=== PATIENT | female | born 1965 | race Caucasian/White ===

== ENCOUNTER 2020-09-21 18:38 | Emergency (ER) | payer OTHER ==
[~2020-09-21] VITALS: Ht 160 cm; Wt 86.2 kg
[~2020-09-21 18:38] MED LIST: COZAAR 25 MG TA25 M1 PO; LEVOXYL200 MCG PO; LIDODERM 5%1 PATC1 TRANSDERM; ONDANSETRON HCL4 M2; OSENI 25-15 MG1 EACH PO; PAXIL30 MG PO; PERCOCET 10-321 EACH PO; PHENERGAN 25 MG25 M1 PO; PROTONIX40 M1 PO; VALIUM5 MG PO; VITAMIN B-12500 MCG PO; WELLBUTRIN XL300 MG PO; XANAX 0.5 MG0.5 MG PO; XARELTO20 MG PO; ZOCOR40 MG PO
[2020-09-21 20:28] LABS: ABSOLUTE NEUTROPHILS 6.7 thou/uL (1.4-8.2); BASOPHILS 1.1 % (0.0-2.0); EOSINOPHILS 7.8 % (0.0-3.0); HEMATOCRIT 39.3 % (37.0-47.0); HEMOGLOBIN 13.4 gm/dL (12.0-15.0); LYMPHOCYTES 22.3 % (24.0-44.0); MCH 29.7 pg (26.0-34.0); MCHC 34.2 g/dL (28.0-37.0); MCV 86.9 fL (80.0-100.0); MONOCYTES 4.7 % (1.0-8.0); PLATELET COUNT 250 thou/uL (150-400); POLYS 64.1 % (36.0-66.0); RBC 4.52 mil/uL (4.20-5.00); WBC 10.5 thou/uL (4.0-11.0)
[2020-09-21 20:42] LABS: INR 1.3; PROTIME 13.8 Seconds (9.3-11.4)
[2020-09-21 20:51] LABS: ALBUMIN 3.6 g/dL (3.4-5.0); ANION GAP 13 mmol/L (7-16); BUN 6 mg/dL (7-18); CHLORIDE 102 mmol/L (98-107); CO2 27 mmol/L (21-32); CREATININE 0.9 mg/dL (0.6-1.0); GLUCOSE 125 mg/dL (74-106); SGOT 55 U/L (15-37); SGPT 44 U/L (14-59); SODIUM 142 mmol/L (136-145); TOTAL BILIRUBIN 0.5 mg/dL (0.2-1.0); TOTAL PROTEIN 6.9 g/dL (6.4-8.2); TROPONIN-I <0.06 ng/mL (<0.06)
[2020-09-21 20:54] LABS: POTASSIUM 2.9 mmol/L (3.5-5.1)
[2020-09-21 21:35] LABS: URINE BILIRUBIN NEGATIVE (Negative); URINE BLOOD NEGATIVE (Negative); URINE CLARITY CLEAR; URINE COLOR YELLOW; URINE GLUCOSE-RANDOM* NEGATIVE (Negative); URINE KETONES NEGATIVE (Negative); URINE LEUKOCYTES-REFLEX NEGATIVE (Negative); URINE NITRITE-REFLEX NEGATIVE (Negative); URINE PROTEIN (DIPSTICK) TRACE (Negative); URINE SPECIFIC GRAVITY <= 1.005 (1.005-1.035); URINE UROBILINOGEN 0.2 E.U./dl (0.2-1.0)
[2020-09-21] MEDS ORDERED: POTASSIUM20 PO (22:57)
[2020-09-21 23:15] VITALS: BP 123/69
--- NOTE | 2020-09-22 07:27 | EKG ---
[address] [address] ELECTROCARDIOGRAM REPORT Name: TWILA OLGUIN [id number] Admission: 09/21/20 Attend Phys: Discharge: 09/21/20 Date of : 65 Report #: [id number] [facility] ED Test Date: 2020-09-21 Test Time: 20:20:00 Pat Name: TWILA OLGUIN Department: Room: Gender: F Aged Or Disabled Care Worker: KATTY : 1965 Requested By: Samantha Frias Order Number: [id number] MD: Miko Jeffries Measurements Intervals [place] Rate: 76 P: 12 [place]: 152 QRS: 49 QRSD: 92 T: 18 QT: 394 QTc: 444 Interpretive Statements Sinus rhythm Borderline repolarization abnormality No previous ECG available for comparison Electronically Signed On 09-22-2020 7:26:58 [employer] by Miko Jeffries [email or web address] <ELECTRONICALLY SIGNED> By: Miko Jeffries MD, [facility] 09/22/20 0726 19 19 Miko Jeffries MD, FACC /EPI
== END 2020-09-21 23:15 | disposition home or self-care (01) ==
LOC: ER 18:38
PROVIDERS: Physician Assistant
DX: M54.5 Low back pain (principal); E87.6 Hypokalemia; E83.42 Hypomagnesemia; E78.5 Hyperlipidemia, unspecified; Z79.899 Other long term (current) drug therapy; Z88.8 Allergy status to other drugs, medicaments and biological substances

== ENCOUNTER 2020-09-22 08:35 | Inpatient (IN) | payer OTHER ==
[~2020-09-22] VITALS: Ht 160 cm; Wt 86.2 kg
[~2020-09-22 08:35] MED LIST changes: +POTASSIUM20 PO
[2020-09-22 08:36] VITALS: BP 146/69
[2020-09-22 11:25] VITALS: BP 120/62
[2020-09-22 12:15] VITALS: BP 122/82
--- NOTE | 2020-09-22 18:19 | NUR ---
Pt arrived to floor from emergency room at 1315 in stable condition. Admission hx,assessment and care plan completed.vss.Pt c/o back pain rated 10/10.Dilaudid po given but pt insisted on getting iv pain shot.Dr Lerner notified but refused to order pain shot,he said pt has inserted pain pump that constantly delivering med.Pt refused equipment monitor phototypesetting and yellow socks and wrist band.Pt dtr here to visit,updates given.After dinner,pt called her spouse for ride and stated that she wanted to go home AMA.Dr Lerner notified. Will continue to monitor.
== END 2020-09-22 19:09 | disposition left against medical advice (07) | DRG 552 ==
LOC: ER 08:35 → EROBS 12:04 → 4W 12:06
PROVIDERS: ADMIT Hospitalist; ATTEND Hospitalist
DX: M54.5 Low back pain (principal); Q60.0 Renal agenesis, unilateral; E78.00 Pure hypercholesterolemia, unspecified; F41.9 Anxiety disorder, unspecified; F32.9 Major depressive disorder, single episode, unspecified; Z96.651 Presence of right artificial knee joint; Z53.21 Procedure and treatment not carried out due to patient leaving prior to being seen by health care provider; Z98.1 Arthrodesis status; Z90.49 Acquired absence of other specified parts of digestive tract; Z79.899 Other long term (current) drug therapy; Z88.8 Allergy status to other drugs, medicaments and biological substances; Z86.711 Personal history of pulmonary embolism
CPT/HCPCS: 10045

== ENCOUNTER 2020-09-30 10:02 | Emergency (ER) | payer OTHER ==
[~2020-09-30] VITALS: Ht 160 cm; Wt 86.2 kg
[2020-09-30 11:26] VITALS: BP 146/71
== END 2020-09-30 11:26 | disposition home or self-care (01) ==
LOC: ER 10:02
DX: G89.29 Other chronic pain (principal); M54.5 Low back pain; F11.20 Opioid dependence, uncomplicated; E11.9 Type 2 diabetes mellitus without complications; Z88.8 Allergy status to other drugs, medicaments and biological substances; Z88.5 Allergy status to narcotic agent; Z88.6 Allergy status to analgesic agent; Z79.899 Other long term (current) drug therapy; Z90.49 Acquired absence of other specified parts of digestive tract; Z98.51 Tubal ligation status

== ENCOUNTER → 2020-09-30 | Outpatient (CLI) | payer OTHER ==
[~2020-09-30] MED LIST changes: +ALPRAZOLAM ER1 MG PO; +FENTANYL IMPLANT; +LOVENOX80 MG/0.8 SUBQ; -ONDANSETRON HCL4 M2; +ONDANSETRON HCL4 M2 PO; +OZEMPIC0.25 MG/0. SUBQ; +PROAIR HFA8.5 GM INH
== END ==
LOC: LAB 08:26
PROVIDERS: ATTEND Specialist
DX: Z01.812 Encounter for preprocedural laboratory examination (principal); Z20.822 Contact with and (suspected) exposure to COVID-19

== ENCOUNTER → 2020-09-30 | Outpatient (CLI) | payer OTHER | LOC: CAT 09:34 | PROVIDERS: ATTEND Specialist | DX: M51.26 Other intervertebral disc displacement, lumbar region (principal); M51.37 Other intervertebral disc degeneration, lumbosacral region; M47.816 Spondylosis without myelopathy or radiculopathy, lumbar region; M48.061 Spinal stenosis, lumbar region without neurogenic claudication ==

== ENCOUNTER 2020-10-04 06:08 | Inpatient (IN) | payer OTHER ==
[~2020-10-04] VITALS: Ht 160 cm; Wt 86.2 kg
[2020-10-04 07:09] VITALS: BP 120/68
[2020-10-04 12:45] VITALS: BP 147/88
[2020-10-04 12:50] VITALS: BP 147/88
[2020-10-04 16:20] VITALS: BP 115/77
[2020-10-04 20:24] VITALS: BP 118/59
[2020-10-05 03:35] VITALS: BP 103/64
[2020-10-05 05:12] LABS: ABSOLUTE NEUTROPHILS 10.2 thou/uL (1.4-8.2); BASOPHILS 0.2 % (0.0-2.0); EOSINOPHILS 0.3 % (0.0-3.0); HEMATOCRIT 35.4 % (37.0-47.0); HEMOGLOBIN 12.1 gm/dL (12.0-15.0); LYMPHOCYTES 12.2 % (24.0-44.0); MCH 30.2 pg (26.0-34.0); MCHC 34.1 g/dL (28.0-37.0); MCV 88.5 fL (80.0-100.0); MONOCYTES 6.6 % (1.0-8.0); PLATELET COUNT 241 thou/uL (150-400); POLYS 80.7 % (36.0-66.0); WBC 12.6 thou/uL (4.0-11.0)
[2020-10-05 05:27] LABS: ALBUMIN 3.2 g/dL (3.4-5.0); CALCIUM 8.6 mg/dL (8.5-10.1); CREATININE 0.8 mg/dL (0.6-1.0); MAGNESIUM 1.7 mg/dL (1.8-2.4); POTASSIUM 3.3 mmol/L (3.5-5.1); TOTAL BILIRUBIN 0.4 mg/dL (0.2-1.0); TOTAL PROTEIN 6.2 g/dL (6.4-8.2)
[2020-10-05 07:30] VITALS: BP 134/69
[2020-10-05] MEDS ORDERED: COLACE100 MG PO (08:29)
[2020-10-05] MEDS ORDERED: FOLIC ACID1 MG PO (08:29)
[2020-10-05] MEDS ORDERED: VITAMIN B-12500 MCG PO (08:29)
[2020-10-05 13:50] VITALS: BP 134/69
[2020-10-05 16:15] VITALS: BP 95/52
[2020-10-05 20:35] VITALS: BP 116/66
[2020-10-06 08:23] VITALS: BP 130/70
[2020-10-06 16:36] VITALS: BP 128/74
[2020-10-06 19:11] VITALS: BP 134/58
[2020-10-07 03:47] VITALS: BP 99/53
[2020-10-07 07:15] VITALS: BP 134/71
[2020-10-07 16:02] VITALS: BP 139/97
[2020-10-07 19:15] VITALS: BP 128/61
[2020-10-08 03:39] VITALS: BP 130/94
[2020-10-08 05:29] LABS: CALCIUM 8.9 mg/dL (8.5-10.1); CREATININE 0.8 mg/dL (0.6-1.0); MAGNESIUM 1.6 mg/dL (1.8-2.4)
[2020-10-08 05:39] LABS: ABSOLUTE NEUTROPHILS 3.8 thou/uL (1.4-8.2); BASOPHILS 0.4 % (0.0-2.0); EOSINOPHILS 5.3 % (0.0-3.0); HEMATOCRIT 31.5 % (37.0-47.0); HEMOGLOBIN 10.7 gm/dL (12.0-15.0); MCH 29.6 pg (26.0-34.0); MCV 87.2 fL (80.0-100.0); MONOCYTES 8.5 % (1.0-8.0); PLATELET COUNT 233 thou/uL (150-400); POLYS 67.8 % (36.0-66.0); RBC 3.62 mil/uL (4.20-5.00); RDW 13.8 % (10.5-14.5); WBC 5.6 thou/uL (4.0-11.0)
[2020-10-08 06:15] LABS: POTASSIUM 2.8 mmol/L (3.5-5.1)
[2020-10-08 07:30] VITALS: BP 125/71
[2020-10-08] MEDS ORDERED: PROTONIX40 M2 PO (14:14)
[2020-10-08] MEDS ORDERED: [UNRECOGNIZED DRUG - OTHER] (15:41)
[2020-10-08 16:27] VITALS: BP 134/69
[2020-10-08] MEDS ORDERED: OXYCODONE HCL10 MG PO (18:14)
== END 2020-10-08 19:09 | disposition home or self-care (01) | DRG 454 ==
LOC: 4S 06:08 → TBA 06:08 → 4S 12:23 → EDSTATUS 13:57 → PRE 14:07 → OR 15:54 → PRE 16:22 → 4S 10-08 19:09
PROVIDERS: Nurse Practitioner; ADMIT Specialist; ATTEND Specialist
PROC: 01NB0ZZ Release Lumbar Nerve, Open Approach (ICD-10-PCS; principal; 2020-10-04)
PROC: 0SG00AJ Fusion of Lumbar Vertebral Joint with Interbody Fusion Device, Posterior Approach, Anterior Column, Open Approach (ICD-10-PCS; principal; 2020-10-04)
PROC: 00NY0ZZ Release Lumbar Spinal Cord, Open Approach (ICD-10-PCS; principal; 2020-10-04)
PROC: 0ST20ZZ Resection of Lumbar Vertebral Disc, Open Approach (ICD-10-PCS; principal; 2020-10-04)
PROC: 0SG1071 Fusion of 2 or more Lumbar Vertebral Joints with Autologous Tissue Substitute, Posterior Approach, Posterior Column, Open Approach (ICD-10-PCS; principal; 2020-10-04)
DX: M51.16 Intervertebral disc disorders with radiculopathy, lumbar region (principal); Q60.0 Renal agenesis, unilateral; E03.9 Hypothyroidism, unspecified; F32.9 Major depressive disorder, single episode, unspecified; F41.9 Anxiety disorder, unspecified; J44.9 Chronic obstructive pulmonary disease, unspecified; G89.4 Chronic pain syndrome; E87.6 Hypokalemia; I10 Essential (primary) hypertension; M53.2X6 Spinal instabilities, lumbar region; E78.5 Hyperlipidemia, unspecified; E11.9 Type 2 diabetes mellitus without complications; E66.9 Obesity, unspecified; Z68.33 Body mass index [BMI] 33.0-33.9, adult; Z88.8 Allergy status to other drugs, medicaments and biological substances
CPT/HCPCS: 10102; 50010; 50101; 50402; 50455; 52258; 55340; 56527; 56528; 56532; 57103; 58457; 58544; 58545; 58546; 58553; 58567; 58568; 58569; 58570; 58571; 58572; 58573; 62110; 62900; 70005